=== PATIENT | male | born 1955 | race Caucasian/White ===

== ENCOUNTER → 2021-04-15 09:16 | Outpatient (BNVA) | payer MEDICARE, SELFPAY | PROVIDERS: PCP Registered Nurse; Visit Provider Registered Nurse | DX: E11.9 Type 2 diabetes mellitus without complications (principal); E78.5 Hyperlipidemia, unspecified; I10 Essential (primary) hypertension; M21.621 Bunionette of right foot; M21.622 Bunionette of left foot; G62.9 Polyneuropathy, unspecified | CPT/HCPCS: 80053; 80061; 83036; 85025 ==

== ENCOUNTER 2021-06-08 12:32 | Outpatient (CLI) | payer MEDICARE, SELFPAY ==
--- NOTE | 2021-06-08 12:47 | XR_ITS ---
WS: [id number] HIP WITH PELVIS LEFT TECHNIQUE: 3 views of the left hip with pelvis CLINICAL INFORMATION: M25.559 - Pain in unspecified hip COMPARISON: None. FINDINGS: Normal anatomic alignment. No acute fractures. Moderate degenerative narrowing left hip. Normal left pubic rami. Vascular calcification. No acute fractures. XR/XR hip LT 2-3V wo/w pel* [id number] IMPRESSION: Moderate degenerative arthritis left hip. No acute fractures. Tonnis classification: grade 2: small cysts in femoral head/acetabulum or moder ate joint space narrowing or moderate loss of head sphericity
== END 2021-06-08 12:33 | disposition home or self-care (01) ==
PROVIDERS: PCP Registered Nurse; Visit Provider Registered Nurse
DX: M16.12 Unilateral primary osteoarthritis, left hip (principal)
CPT/HCPCS: 73502

== ENCOUNTER → 2021-06-15 14:45 | Outpatient (BNVA) | payer MEDICARE, SELFPAY | PROVIDERS: PCP Registered Nurse; Referring Provider Registered Nurse; Visit Provider Podiatrist Foot & Ankle Surgery | DX: M21.621 Bunionette of right foot (principal); M21.622 Bunionette of left foot; M77.41 Metatarsalgia, right foot; M77.42 Metatarsalgia, left foot; M20.41 Other hammer toe(s) (acquired), right foot; M20.42 Other hammer toe(s) (acquired), left foot; E11.42 Type 2 diabetes mellitus with diabetic polyneuropathy | CPT/HCPCS: 73630 ==

== ENCOUNTER → 2021-07-16 14:14 | Outpatient (BNVA) | payer MEDICARE, SELFPAY | PROVIDERS: PCP Registered Nurse; Referring Provider Registered Nurse; Visit Provider Orthopaedic Surgery | DX: M54.5 Low back pain (principal) | CPT/HCPCS: 72110 ==

== ENCOUNTER → 2021-07-17 10:24 | Outpatient (BNVA) | payer MEDICARE, SELFPAY | PROVIDERS: PCP Registered Nurse; Referring Provider Orthopaedic Surgery; Visit Provider Anesthesiology Pain Medicine | DX: M25.552 Pain in left hip (principal); M47.816 Spondylosis without myelopathy or radiculopathy, lumbar region | CPT/HCPCS: 99204 ==

== ENCOUNTER → 2021-08-03 14:00 | Outpatient (BNVA) | payer MEDICARE, SELFPAY | PROVIDERS: PCP Registered Nurse; Visit Provider Anesthesiology Pain Medicine | DX: Z01.812 Encounter for preprocedural laboratory examination (principal); E11.65 Type 2 diabetes mellitus with hyperglycemia; G89.29 Other chronic pain; M25.552 Pain in left hip; Z79.4 Long term (current) use of insulin | CPT/HCPCS: 20610; 36416; 77002; 82962; J1030; J3490 ==

== ENCOUNTER → 2021-08-13 09:42 | Outpatient (BNVA) | payer MEDICARE, SELFPAY | PROVIDERS: PCP Registered Nurse; Visit Provider Anesthesiology Pain Medicine | DX: M47.816 Spondylosis without myelopathy or radiculopathy, lumbar region (principal); M25.552 Pain in left hip | CPT/HCPCS: 99213 ==

== ENCOUNTER 2021-09-08 16:18 | Outpatient (RCR) | payer MEDICARE, SELFPAY | END 2021-09-20 23:59 | disposition home or self-care (01) | LOC: SPT 16:18 | PROVIDERS: PCP Registered Nurse; Referring Provider Anesthesiology Pain Medicine; Visit Provider Anesthesiology Pain Medicine | DX: M25.559 Pain in unspecified hip (principal) | CPT/HCPCS: 97110; 97162 ==

== ENCOUNTER → 2022-01-11 09:43 | Outpatient (BNVA) | payer MEDICARE, SELFPAY | PROVIDERS: PCP Registered Nurse; Visit Provider Registered Nurse | DX: E11.65 Type 2 diabetes mellitus with hyperglycemia (principal); Z79.4 Long term (current) use of insulin; E78.5 Hyperlipidemia, unspecified; I10 Essential (primary) hypertension; L20.9 Atopic dermatitis, unspecified | CPT/HCPCS: 80053; 80061; 83036; 83721 ==

== ENCOUNTER 2022-02-12 07:03 | Outpatient (CLI) | payer MEDICARE, SELFPAY ==
[2022-02-12 07:56] VITALS: BMI 29.2
--- NOTE | 2022-02-12 08:03 | ECG_ITS ---
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 Interpretive Statements NAME OF STUDY: LEXISCAN SESTAMIBI STRESS TEST INDICATION: Chest Pain, PROCEDURE: At the baseline, the EKG revealed sinus bradycardia with the PVCs. Possible old inferior wall myocardial infarction. Heart rate of 57 beats per minute. The baseline blood pressure was 133/59 mm Hg with a heart rate of 57 beats/min. Lexiscan was infused over a period of 20 seconds. A total of 0.4 milligrams of Lexiscan was infused. The stress phase was continued for a total of 5 minutes. Heart rate at the end of the stress phase was 68 bpm with a blood pressure 170/70. The EKG at the peak infusion revealed no significant changes Sestamibi was injected 20 seconds after the Lexiscan infusion. Blood pressure at the end of the recovery phase was 162/88 with a heart rate of 86 per minute. CONCLUSION: 1. No significant EKG changes with a Lexiscan stress 2. No LexiScan induced chest pain or cardiac arrhythmia 3. Normal blood pressure and heart rate response 4. Sestamibi/sestamibi perfusion scan pending; see separate report. Electronically Signed On 02-12-2022 13:38:14 CDT by Tiara Kat M.D. [id number]
--- NOTE | 2022-02-12 08:03 | NMCV_ITS ---
NM jane perf SPECT r/s* [id number] Dimitri Santillan Age: 67 Gender: M : 1955 Exam Date: 02/12/2022 08:56 Ordering Phys: Tiara Kat MD ([email or web address]) Technologist: MARIA ESTHER No Exam Location: [facility] Indications: OCCLUSION AND STENOSIS OF UNSPECIFED CAROTID ARTERY STRESS TEST Please see separate stress test report in [facility] for full findings IMAGE PROTOCOL Rest/Stress 1 Lexiscan Day Radiopharmaceutical Dose (mCi) Administration Site Administered by Rest: Tc-99m 10.9 IV MARIA ESTHER Johnson Sestamibi Stress:Tc-99m 32.4 IV MARIA ESTHER Johnson Sestamibi Rest: 12-Feb-2022 60 Discovery 630 Stress: 12-Feb-2022 30 Discovery 630 0.4mg Lexiscan. Images obtained in supine and prone position. SPECT RESULTS Technical Quality: Excellent Raw Data Analysis: Normal Image Corrections: No attenuation or motion correction applied Summed Stress Score: 0 Summed Rest Score: 0 Summed Difference Score: 0 PERFUSION FINDINGS Uniform myocardial tracer uptake with no significant perfusion abnormalities FUNCTIONAL RESULTS (calculated via Gated SPECT) Stress Image LV EF (%): 61 Stress EDV (mL):115 TID: 1.18 Stress ESV (mL):45 FUNCTIONAL FINDINGS: Segmental wall motion analysis revealing no gross wall motion abnormalities IMPRESSIONS 1. Myocardial perfusion imaging revealing uniform myocardial tracer uptake with no perfusion defects 2. Normal LV ejection fraction of 61%. 3. LV wall motion analysis revealing no gross wall motion abnormalities 4. Normal LV volume No significant coronary ischemia, based on the above findings Dr Tiara Kat MD [facility] (Electronically Signed) Final Date: 12 February 2022 15:56 S
--- NOTE | 2022-02-12 08:30 | USCV_ITS ---
Dimitri Santillan Age: 67 Gender: M : 1955 Exam Date: 02/12/2022 07:13 Ordering Phys: Tiara Kat MD ([email or web address]) Technologist: Francy Carreon [place] [facility] [place]: RT CEA STENT IN PLACE. Risk Factors: Unknown Previous Vascular Surgery: R CEA Right Brachial BP: / Left Brachial BP: / Right Left Velocity (cm/s) Spectral Plaque Velocity (cm/s) Spectral Plaque Syst/Diast Broadening Syst/Diast Broadening 60.50/ 13.50 Prox CCA 59.90 / 13.00 31.90/ 14.00 Mid CCA 53.10 / 15.40 39.60/ 10.80 Distal CCA 59.20 / 14.20 50.85/ 17.40 Prox ICA 36.50 / 10.60 41.50/ 14.60 Mid ICA 42.70 / 18.20 39.70/ 16.40 Distal ICA 40.70 / 7.10 83.10 ECA 66.00 1.39 ICA/CCA 0.80 Antegrade Vertebral Antegrade 36.40/ 12.30 cm/s 33.40/ 11.70 cm/s Tri Subclavian Tri 53.70 79.70 FINDINGS A stent in the proximal right internal carotid artery appeared to be patent with a normal flow velocity Minimal plaques of the left bifurcation and proximal ICA Normal Doppler flow velocities Antegrade flow in the vertebral arteries bilaterally Normal Doppler flow velocities in the external carotid and subclavian arteries bilaterally CONCLUSIONS 1. Patent stented segment of the right proximal ICA with no evidence of stenosis 2. Minimal plaques at the left bifurcation and proximal internal carotid artery. 3. No evidence of any significant stenosis in the external carotid, subclavian and vertebral arteries bilaterally Dr Tiara Kat MD [facility] (Electronically Signed) Final Date: 12 February 2022 16:02 S
[2022-02-12] MEDS: regadenoson 0.4 Mg/5 ml Syringe IVP (09:41)
[2022-02-12 09:51] VITALS: BP 162/68; PULSE 66
== END 2022-02-12 07:04 | disposition home or self-care (01) ==
LOC: RAD 07:04 → CDL 07:16
PROVIDERS: PCP Registered Nurse; Visit Provider Internal Medicine Cardiovascular Disease
DX: I65.23 Occlusion and stenosis of bilateral carotid arteries (principal); I77.9 Disorder of arteries and arterioles, unspecified; R09.89 Other specified symptoms and signs involving the circulatory and respiratory systems; R07.9 Chest pain, unspecified
CPT/HCPCS: 78452; 93017; 93880; A9500; J2785

== ENCOUNTER 2022-04-13 10:31 | Outpatient (CLI) | payer MEDICARE, SELFPAY ==
--- NOTE | 2022-04-13 11:00 | USCV_ITS ---
Dimitri Santillan Age: 67 Gender: M : 1955 Exam Date: 04/13/2022 10:49 Ordering Phys: Tiara Kat MD ([email or web address]) Technologist: FRANK Exam Location: [facility] [place] Indication: pad hx of rt sfa stent Risk Factors: Previous Vascular Surgery: RIGHT LEFT BP: 130.0 / 80.00 BP: 130.0/ 85.00 0 0 Waveform Velocity (cm/s) Velocity (cm/s) Waveform 99.0 Iliac Prox 144.3 97.1 Iliac Mid 125.5 108.6 Iliac Distal 127.0 COURIER 111.3 50.0 POP 84.7 16.0 MOTHERS HELPER 18.3 16.0 DPA 20.1 0.4 LUIGI 0.3 FINDINGS The right side, no Doppler flow signals are noted in the common femoral or femoral artery. Sluggish flow is noted in the popliteal, posterior tibial and dorsalis pedis artery. On the left side no Doppler flow signals are noted in the femoral artery. Doppler flow signals were noted in the popliteal and infrapopliteal vessels. Resting LUIGI 0.4 on the right and 0.3 on the left side CONCLUSIONS 1. Abnormal resting ABIs bilaterally, suggesting severe peripheral arterial disease. 2. On the right, the common femoral and the anterior superficial femoral arteries appear totally occluded. Popliteal and infrapopliteal vessels appear patent. 3. On the left, the iliac and the femoral arteries were found to be patent. The superficial femoral artery was found to have no blood flow. Popliteal and infrapopliteal vessels were found to be patent. No similar previous studies are available for comparison Dr Tiara Kat MD [facility] (Electronically Signed) Final Date: 13 Apr 2022 18:43 S
== END 2022-04-13 10:32 | disposition home or self-care (01) ==
PROVIDERS: PCP Registered Nurse; Visit Provider Internal Medicine Cardiovascular Disease
DX: I65.29 Occlusion and stenosis of unspecified carotid artery (principal); I77.9 Disorder of arteries and arterioles, unspecified; Z98.62 Peripheral vascular angioplasty status
CPT/HCPCS: 93925

== ENCOUNTER 2022-05-12 10:14 | Outpatient (CLI) | payer MEDICARE, SELFPAY ==
--- NOTE | 2022-05-12 10:25 | CT_ITS ---
WS: [id number] CTA ABDOMINAL AORTA WITH RUNOFF TECHNIQUE: Contrast enhanced CTA of the abdominal aorta with bilateral lower extremity runoff. Multip lanar reformatted images were obtained. MIP reformats were also reviewed. CLINICAL INFORMATION: Femoral artery occlusion COMPARISON: None. DLP: 955.[address] scans at [facility] use at least one of these dose optimization techniques: automated e xposure control; mA and/or kV adjustment per patient size (includes targeted exams where dose is matc hed to clinical indication); or iterative reconstruction. FINDINGS: Normal caliber abdominal aorta. Celiac and SMA are patent. Moderate aortic atheromatous dis ease. KWASI is patent. RIGHT: RIGHT common iliac artery is patent. RIGHT external iliac and internal iliac arteries are valadez nt with atheromatous disease. Moderate short segment narrowing of the distal external iliac which rem ains patent. Proximal Common femoral artery is patent. The femoropopliteal bypass graft is occluded. No flow in the bypass graft. Deep femoral artery appears patent. No flow in the popliteal artery. Tin y three-vessel runoff to the ankle. Calf arteries reconstitute just below the just knee via collatera l flow. No significant in-line flow LEFT: LEFT common iliac artery is patent. Densely calcified internal iliac artery. External iliac art misha is patent. Common femoral artery is patent. Superficial femoral artery is occluded at the origin. Deep femoral artery is patent. Popliteal artery is occluded. Dominant anterior tibial and posterior tibial runoff. Diminutive tiny peroneal artery. Diffuse fatty infiltration liver. Normal portal vein and splenic vein. Fatty atrophy of the pancreas . Normal spleen. Small esophageal hiatal hernia. Slight atelectasis in the lung bases. Cholelithiasis . Adrenal glands are normal. Normal renal parenchymal enhancement. No hydronephrosis. Fat-containing LEFT inguinal hernia. Enlarged heterogeneous nodular prostate measuring 5.6 cm. Recommend correlation PSA. Indentation on the bladder with bladder outlet obstruction. Sigmoid diverticulosis. Normal appe ndix in the RIGHT lower quadrant. No periaortic lymphadenopathy. Tiny fat-containing umbilical hernia . CT/CT angio abd aorta runof [id number] IMPRESSION: 1. RIGHT femoral popliteal bypass graft is occluded. No flow in the superficia l femoral artery and popliteal artery. Three-vessel calf runoff to the ankle wi th somewhat diminutive but patent calf arteries 2. LEFT superficial femoral artery is occluded at the origin. Popliteal arter y is occluded.Dominant anterior tibial and posterior tibial runoff. Diminutive tiny peroneal artery. 3. Normal caliber abdominal aorta with moderate atheromatous disease. 4. Celiac and SMA are patent. KWASI is patent. 5. Enlarged heterogeneously enhancing nodular prostate with evidence of bladde r outlet obstruction. Recommend correlation PSA. 6. Cholelithiasis. 7. Additional nonvascular findings as described above.
[2022-05-12 10:46] LABS: Blood Urea Nitrogen 17 mg/dL (8-23); Glomerular Filtration Rate 50.4 mL/min (90-130)
[2022-05-12] MEDS: iodixanol 320 mg/mL 100mL Btl IV (11:09)
== END 2022-05-12 10:15 | disposition home or self-care (01) ==
PROVIDERS: PCP Registered Nurse; Visit Provider Internal Medicine Cardiovascular Disease
DX: I70.209 Unspecified atherosclerosis of native arteries of extremities, unspecified extremity (principal); I77.9 Disorder of arteries and arterioles, unspecified; N28.9 Disorder of kidney and ureter, unspecified; T82.898A Other specified complication of vascular prosthetic devices, implants and grafts, initial encounter; N40.1 Benign prostatic hyperplasia with lower urinary tract symptoms; N13.8 Other obstructive and reflux uropathy; K80.20 Calculus of gallbladder without cholecystitis without obstruction
CPT/HCPCS: 75635; 82565; 84520

== ENCOUNTER → 2022-05-18 13:30 | Outpatient (BNVA) | payer MEDICARE, SELFPAY | PROVIDERS: PCP Registered Nurse; Visit Provider Internal Medicine Cardiovascular Disease | DX: I77.9 Disorder of arteries and arterioles, unspecified (principal); E11.65 Type 2 diabetes mellitus with hyperglycemia; Z79.4 Long term (current) use of insulin; I10 Essential (primary) hypertension; I65.29 Occlusion and stenosis of unspecified carotid artery | CPT/HCPCS: 99214 ==

== ENCOUNTER → 2022-05-28 08:20 | Outpatient (BNVA) | payer MEDICARE, SELFPAY | PROVIDERS: PCP Registered Nurse; Visit Provider Internal Medicine Cardiovascular Disease | DX: I77.9 Disorder of arteries and arterioles, unspecified (principal) | CPT/HCPCS: 80048; 85025 ==

== ENCOUNTER 2022-06-09 07:13 | Outpatient (CLI) | payer MEDICARE, SELFPAY ==
[2022-06-09] VITALS (34 sets, daily range): BP systolic 131–185; BP diastolic 59–92; PULSE 53–70; RESP 11–25; TEMP 36.2–37.1; O2SAT 91–97; BMI 27.9; BMI 27.8
--- NOTE | 2022-06-09 07:30 | XACV_ITS ---
Wt: 83 kg BSA: 2.02 m2 Any Known Allergies: No known allergies Gender: Male : 1955 Exam Type: Invasive Peripheral Vascular - Dual [place] Procedure(s): Procedure Description: Peripheral Cath Diagnostic Procedure Procedure Description: Abdominal aortic angiography Procedure Description: Iliac arterial aortic angiography Procedure Description: Lower extremities' angiography Procedure Description: Peripheral vascular Intervention Procedure Description: PV Balloon Procedure Description: PV Stent Exam Priority: Routine [facility]; Abdominal Diagnostic Findings A 5 Angolan arterial sheath was introduced in the left femoral artery, using a micropuncture needle system. Abdominal aorta and iliac artery were visualized by digital subtraction angiogram, after placing a short pigtail catheter at the level of the renal arteries, in the AP view. The abdominal aorta was found to have mild diffuse plaque. The right renal artery was well visualized and was found to have no significant stenotic lesions. The proximal segment of the left renal artery was visualized and was found to have no significant stenosis. The distal segment was not visualized well. Both the common iliac arteries were found to be ectatic with a small aneurysmal dilatations. Both internal iliac arteries were found to have mild diffuse disease. On the right side, at the takeoff of the internal iliac artery, there was a napkin ring type of lesion of around 50-60%. The external iliac artery was found to have a segmental narrowing of around 60-70%. On the left side, the iliac artery was found to have mild to moderate diffuse plaques.. Lower Extremity Diagnostic Findings The right iliac artery was selectively engaged using a NASEEM catheter. An iliac angiogram with runoff was performed in the AP view. The femoral artery appeared to be flush occluded after the takeoff of the profunda femoral artery. The profundofemoral artery was found to have moderate diffuse disease proximally. The right Morelos popliteal bypass graft was found to be totally occluded. The popliteal artery was found to be constituted thro extensive collaterals, from the profundofemoral artery. Digital subtraction angiogram was performed at the level of the distal femoral and popliteal artery. The popliteal artery was found to be trifurcating to anterior tibial, posterior tibial and peroneal arteries. The proximal segment of the tibial artery was found to have moderate diffuse disease. No other significant stenotic lesions were noted in the proximal to mid segment of these vessels. On the left side, iliac angiogram with runoff was performed by injecting into the femoral arterial sheath. The external iliac artery was found to have mild to moderate diffuse disease. The mid iliac artery also was found to have moderate diffuse disease proximally. Right after the profunda femoral artery, the femoral artery appears to be completely occluded. The popliteal artery also appears to be totally occluded. Infrapopliteal vessels are found to be reconstituted through collaterals. Lower Extremity Interventional Findings Procedure detail: We switched 5 Angolan sheath to long 6 Angolan sheath. Balloon angioplasty of external iliac artery was performed with 7.0 x 40 mm balloon. This was followed by placement of 7.0 x 29 mm Omnilink stent. At this time final angiogram was performed that showed excellent stent expansion and no significant residual stenosis in the external iliac artery. Patient left the Care Team Coordinator Scheduler in a stable condition with. Right External Iliac Artery: 70% stenosis treated with AB ARMADA 35 OTW [id number] and AB OMNILINK STENT 7.0X29MM. Conclusions This 63-year-old white male with a history of peripheral artery disease, status post multiple peripheral interventions and a right Morelos popliteal bypass grafting, presented with increasing external claudication. He had an LUIGI of 0.3 on the right side and 0.4 on the left side. A CTA of the abdominal aorta with runoff was performed. The femoral artery on both sides were found to be completely occluded. The femoropopliteal bypass graft also was found to be completely occluded. Three-vessel runoff was noted in the infrapopliteal regions. Peripheral angiogram was performed mainly to evaluate for intervenable lesions. This patient's claudication was classified as Sheryl stage IIb. The angiogram was performed as mentioned above. The findings are as follows.. 1. Mild to moderate diffuse plaques in the abdominal aorta. No significant stenosis in the proximal renal arteries or in the inferior mesenteric artery. There is a 60-70% stenosis in the external iliac artery on the right side. Total occlusion of the femoral artery at the level of the profundofemoral takeoff bilaterally. On the right side, the popliteal artery was found to be reconstituted through extensive collaterals. On the left the infrapopliteal vessels were found to be reconstituted through extensive collaterals. The Fem-popliteal bypass thatfound to be totally occluded on the right side. Based on the angiographic findings, it was thought to be appropriate to consider intervention of the external iliac artery lesion on the right side to improve the inflow since the patient was complaining more pain on the right side. I reviewed and discussed the angiogram findings with the Dr. Crockett. Dr. Crockett concurred with this plan. At this point, Dr. Crockett took over further management of this patient. Status post successful revascularization of right external iliac artery with balloon angioplasty and stent placement. Right External Iliac Artery was treated with Balloon and Stent. Recommendations Aspirin and Plavix for atleast 3-6 months. Statin therapy. Outpatient cardiology follow up in 4 weeks. Hemodynamic Data Phase:Rest AO : 196.0 / 76.0 ( 119.0 ) @ 10:16:00 AM 192.0 / 191.0 ( 116.0 ) @ 11:10:00 AM Access Site Site: Left Femoral artery Sheath Size: 5 Fr Hemost... Method: Suture Hemost... Success: Successful Procedure Details Findings Pre-Procedure Time Out. Identified patient by full name and date of as verbalized by the patient/guarantor. Does the consent match the physician's order: Yes. Accurate & Complete Informed Consent: Yes. Inpatient/Outpatient History & Physical on Chart: Yes. If H&P is completed, is and addenduem needed: No; If yes, is the addendum complete: N/A. Visualize and Verify Site with Patient/Guarantor: N/A. Relevant Radiology Images available: N/A. Pre-op teaching completed and patient verbalized understanding. The risks, benefits, and alternatives of sedation and/or procedure were discussed by physician. The patient agrees to continue. Procedure started. Correct patient, site and procedure confirmed by cath team. PERRLA. Strong, equal hand technician semiconductor development bilaterally. Lungs clear x 5 lobes. IV Site on Arrival: 20 gauge in the right anticubital. IV Fluids: 0.9% NaCl at KVO. 0 mL infused prior to confectionery laboratory manager. Pre Procedural Pulses: bilateral dorsalis pedis was Doppled. Pre Procedural Pulses: bilateral posterior tibial was Doppled. Pre Procedural Pulses: bilateral radial was 3+. Oxygen started at 2liters/min via nasal canula. bilateral groins was prepped with chloroprep then draped in the usual sterile fashion. Baseline sample Acquired. HR: 89 BPM. Equipment: Peripheral. Cardiac Cath Pack. ACIST Manifold Kit Model BT 2000. Heparinized Saline (2 units/mL), 1000 mL bag. Physician arrived. Physician scrubbed in. Immediate Pre-Procedure Time Out. Correct Patient: Yes; Correct Procedure: Yes; Correct Site: Yes; Correct Patient Position: Yes; Correct Supplies: Yes; Dried Flammable Prep: Yes; Blood Products Available: N/A;. Lidocaine 1% infiltrated to the left groin. Arterial access obtained with micropuncture set. Contrast injection through micro dilator. A CORDIS 5F UF catheter 65cm was advanced over the wire and used for Abdominal aortogram with runoff. Abdominal aortogram performed in AP @ 10 mL/sec for a total of 30 mL. Catheter repositioned to right iliac. Wire out. Glidewire inserted. Catheter out over glide wire. A JJ 5F RIM 65 cm Diagnostic Catheter was advanced over the wire and used for Lower extremity arteriography. Glidewire out. Right leg selected and arteriogram with runoff performed @ 10 mL/sec for a total of 30 mL. Right leg runoff below knee 10 m for total of [address] Crockett to come view images. Right common iliac selected and arteriogram performed. Side port of sheath attached to Normal Saline flush at KVO to maintain patency. Dr Crockett arrived. Right common iliac selected and arteriogram performed. Catheter out. Left leg runoff through the sheath. DSA image of left knee. Side port of sheath attached to Normal Saline flush at KVO to maintain patency. Dr Kat scrubbed out. Dr Kat updating family. Dr. Crockett scrubbed in to perform intervention. Sheath upsized to a 6 Fr. Short 6 fr sheath exchanged for long 45 cm 6 fr flexor sheath. RIM catheter inserted over glidewire. Wire seated to prox right sfa. Catheter out over wire. Inflation number : 1 A AB ARMADA 35 OTW [id number] was prepped and advanced across the External Iliac, Right , then inflated to 6 TOMAS for 1:30 seconds. Inflation number: 2 The AB ARMADA 35 OTW [id number] was reinflated across the External Iliac, Right, to 6 TOMAS for 1:00 seconds. Balloon out. DSA of right iliac 10 ml for total of 20 ml. Inflation Number : 3 A [employer] OMNILINK STENT 7.0X29MM -Lot Number# [id number] exp date 02/18/2025 was prepped and advanced across the External Iliac, Right. The stent was deployed at 11 TOMAS for 1:18 seconds. DSA of right iliac 10 ml for total of 10 ml. Long 45 cm 6 fr flexor sheath exchanged for short [address] Crockett scrubbed out. A Suture was successful obtaining hemostatsis at the Left Femoral artery insertion site. Sheath(s) sutured into position with 2-0 silk and sterile 4x4's and Op-site applied over the site. No oozing or signs and symptoms of hematoma noted. Arterial sheath flushed and connected to tranducer and pressure bag with heparinized saline. Post Procedure: Pulses reassessed and unchanged. PERRLA. Strong, equal hand technician semiconductor development bilaterally. No VTE prophylaxis required. Medication's Wasted: Heparin = 4000 units. Total IV fluids: 113 mL. Contrast type used: Visipaque 320 mgI/mL, 500 mL bottle. Post-op diagnosis: severe disease of right external iliac. Complications: none. Estimated blood loss: 5mL-10mL. Responsiveness - Normal response to verbal stimuli; alert and oriented, PERRLA. Airway - Unaffected, no intervention required; spontaneous ventilation. Circulation: W/N/L, pulses unchanged. Nausea/Vomiting: No. Procedure completed. Patient transferred by bed to 1st floor. Vital chart was stopped. Procedure Medications Start: 9:06 AM Stop: 9:06 AM Medication: Versed Amount: 1 mg Route: I.V. Start: 9:06 AM Stop: 9:06 AM Medication: Fentanyl Amount: 50 mcg Route: I.V. Start: 9:25 AM Stop: 9:25 AM Medication: Heparin Amount: 1500 units Route: I.V. Start: 9:58 AM Stop: 9:58 AM Medication: Versed Amount: 1 mg Route: I.V. Start: 10:11 AM Stop: 10:11 AM Medication: Heparin Amount: 3000 units Route: I.V. Start: 10:15 AM Stop: 10:15 AM Medication: Hydralazine Amount: 10 mg Route: I.V. Start: 10:22 AM Stop: 10:22 AM Medication: Hydralazine Amount: 10 mg Route: I.V. Start: 10:25 AM Stop: 10:25 AM Medication: Versed Amount: 1 mg Route: I.V. Start: 10:27 AM Stop: 10:27 AM Medication: Heparin Amount: 1000 units Route: I.V. I, the attending physician, have reviewed and verified all procedure medications. Yes, all medications given per verbal order History/Risk Factors Hypertension: Yes Dyslipidemia: No Peripheral Arterial Disease (PAD): No Obesity: No Renal Disease: No Prior Interventions PCI: No CABG: No Valve Surgery: No Report Signatures Interventional Workflow Finalized by Roscoe Crockett MD on 06/21/2022 12:00 PM Diagnostic Workflow Finalized by Dr Tiara Kat MD [facility] on 06/10/2022 08:48 PM
[2022-06-09] MEDS: diphenhydrAMINE 50 mg Capsule PO (07:43)
--- NOTE | 2022-06-09 08:39 | W.PM.OPSUD ---
Surgery/Procedure H&P Update DATE OF PROCEDURE: June 09, 2022 DATE H&P PERFORMED: 05/18/22 H&P UPDATE INFORMATION: I have reviewed H&P completed within last 30 days, I have examined patient prior to procedure and No changes to prior documentation PREOP DIAGNOSIS: PAD PRIMARY INDICATION FOR PROCEDURE: leg pain, abnormal LUIGI PLANNED PROCEDURE: Operation Date: 06/09/22 08:30 Proposed Procedures p Peripheral Diagnostic(Bilateral) - Tiara Kat MD possible peripheral artery intervention PATIENT REASSESSED PRIOR TO SEDATION, WITH NO CHANGE NOTED: Yes PHYSICAL EXAM: alert, oriented x 3, clear to auscultation bilaterally and regular rate & rhythm AIRWAY EVAL/ANESTHESIA PLAN: normal airway, see other exam findings, Monitored Anesthesia, Local Anesthesia, Risks, benefits & alternatives of sedation and/or procedure discussed and Patient agrees to continue as planned
--- NOTE | 2022-06-09 11:14 | PC.NURSE ---
received from cardiac lab intern at 1050.report received.pt is drowsy but easily awakened.alert and orient x 3.denies pain.sr on monitor.left femoral arterial sheath intact to pressurized system.drsg to site is dry and intact.no hematoma noted.left leg is warm to touch and with brisk capillary refill.dopplerable pt and dp pulses noted .pt instructed in activity restrictions s/p femoral artery procedure..and instructed to notify staff for any bleeding,pain,sob,cp,numbness..or for any concerns at all.pt verb understanding of instructions.
[2022-06-09 14:46] LABS: Partial Thromboplastin Time 30.8 SECONDS (23.9-36.7)
--- NOTE | 2022-06-09 15:44 | USCV_ITS ---
Dimitri Santillan Age: 67 Gender: M : 1955 Exam Date: 06/09/2022 16:17 Ordering Phys: Roscoe Crockett M.D ([email or web address]) Technologist: Raul Arroyo Exam Location: [facility] – [place] Indication: post sheath removale Findings no psuedoaneurysm normal iliac artery and vein flow flow present at the posterior tib artery Conclusions No pseudoaneurysm Normal iliac artery and vein Normal flow posterior tibial artery Elder Kennedy MD (Electronically Signed) Final Date: 10 June 2022 09:10 S
--- NOTE | 2022-06-09 16:08 | PC.NURSE ---
left femoral arterial sheath pulled at 1505.manual pressure held x 20 min.after pressure released, a small firm area of tissue palpated upper and medial to sheath site.pulsation noted.pressure resumed to artery and to firm area.dr javed was on unit and notified. he instructed to hold pressure for an additional 10 min and obtain arterial ultrasound.ultrasound performed and no pseudoaneurysm noted.site dressed with 2x2 gauze and secured with biocclusive.pt tolerated procedure well.instructed in activity restrictions s/p femoral artery sheath pull..and instructed to notify staff for any bleeding,pain,numbness...or for any concerns at all.pt verb understanding of instructions
[2022-06-09 16:35] LABS: Glucose Point of Care 191 mg/dL (70-110)
--- NOTE | 2022-06-09 18:36 | PC.NURSE ---
transferred to room 276-1 via bed at this time.left groin drsg dry and intact.site is soft to touch.
--- NOTE | 2022-06-09 19:00 | PC.NURSE ---
Left groin dressing is dry and intact, site is soft, patient denies tenderness. Bilateral pedal pulses present.
[2022-06-09] MEDS: atorvastatin 40 mg Tablet 20 MG PO (21:09)
[2022-06-09] MEDS: amlodipine 10 mg Tablet PO (21:09)
--- NOTE | 2022-06-09 23:26 | PC.NURSE ---
Patient's bedrest is completed, patient ambulated in the hallway. Left groin dressing is still dry and intact, no hematoma present, site is soft, and pedal pulse present in the left foot.
[2022-06-10] VITALS: BP 111/69; PULSE 79; RESP 18; TEMP 36.5; O2SAT 91
[2022-06-10 04:00] VITALS: BP 138/65; PULSE 56; RESP 18; TEMP 36.4; O2SAT 94
[2022-06-10 05:17] VITALS: PULSE 60
--- NOTE | 2022-06-10 05:46 | PC.NURSE ---
i reported low pulse 56 to nurse
[2022-06-10 08:00] VITALS: BP 138/70; PULSE 56; RESP 17; O2SAT 94
[2022-06-10 08:13] VITALS: BP 138/70
[2022-06-10] MEDS: losartan 50 mg Tablet 100 MG PO (08:13)
--- NOTE | 2022-06-10 09:50 | P.PN_ITS ---
Subjective Subjective: Patient was admitted to hospital following peripheral angiogram and intervention of the right iliac artery. Since the peripheral intervention, the patient has been doing okay with no unusual leg pain Medications: Medication Review Details: Current Medications Amlodipine Besylate (Amlodipine 10 Mg Tablet) 10 mg PO BEDTIME [facility] Last Admin: 06/09/22 21:09 Dose: 10 mg Documented by: Atorvastatin Calcium (Atorvastatin 40 Mg Tablet) 20 mg PO BEDTIME [facility] Last Admin: 06/09/22 21:09 Dose: 20 mg Documented by: Fluticasone Propionate (Fluticasone Nasal [place] 16gm Btl) 2 spray INTRANASAL DAILY PRN PRN Reason: seasonal allergies Losartan Potassium (Losartan 50 Mg Tablet) 100 mg PO DAILY [facility] Last Admin: 06/10/22 08:13 Dose: 100 mg Documented by: Metformin HCl (Metformin 500 Mg Tablet) 1,000 mg PO BIDWM [facility] Last Admin: 06/10/22 07:12 Dose: Not Given Documented by: Non-Formulary Medication (Glipizide) 5 mg PO BID [facility] Triamcinolone Acetonide (Triamcinolone 0.5% Cream 15 Gm) 1 applic TOPICAL DAILY PRN PRN Reason: AFFECTED AREA Vitals/I&O/Wt Last Vital Signs Temp 97.6 F 06/10/22 04:00 Pulse 56 L 06/10/22 08:00 Resp 17 06/10/22 08:00 BP 138/70 06/10/22 08:13 Pulse Ox 94 06/10/22 08:00 06/09/22 06/10/22 06/10/22 22:59 06:59 14:59 Intake Total 480 / 720 120 / 840 236 / 236 Output Total 275 / 275 Balance 205 / 445 120 / 565 236 / 236 Weight last 48 hrs Weight 183 lb 0.5 oz Weight 184 lb Physical Exam Narrative: GENERAL: The patient is alert and oriented times three. Not in any acute distress. HEENT: No significant pallor, icterus or lymphadenopathy.Oral cavity: There are no mucous membrane lesions. NECK: Trachea appears to be central. No masses noted. No JVD or thyromegaly a ppreciated. RESPIRATORY: Chest is symmetrical. No intercostals muscle retraction or any accessory muscle activation. There is no chest wall tenderness. Breath sounds are heard bilaterally. No rales or rhonchi heard. No evidence of any consolidation. BREASTS: Deferred. HEART: The heart sounds are normal. No S3 or S4. No significant murmurs. No pericardial rub ABDOMEN: No vessel pulsations or distention. No tenderness. No organomegaly appreciated. Bowel sounds are normally heard. : Deferred. RECTAL: Deferred. LYMPHATIC: No lymphadenopathy noted in the neck. EXTREMITIES: The left groin has no hematoma bleeding. Normal discoloration of the skin of the extremities. The peripheral pulses are very weak bilaterally but is warm. MUSCULOSKELETAL: No acute joint deformities or swelling SKIN: There are no significant rashes or ecchymosis NEUROPSYCHIATRIC: The patient is alert and oriented x3. Appears to be in a good mood. No tremors or rigidity noted. Data Other data: For the peripheral angiogram findings, please refer to the separate report A&P Assessment and plan (1) Peripheral arterial occlusive disease: Patient has chronic total occlusion of the femoral arteries bilaterally. Reconstitution of the vessels in the popliteal region. The femoral-popliteal bypass graft on the right side is occluded. Underwent stenting of the right external iliac artery yesterday. Currently seems to be stable and has significant improvement of the symptoms. Status: Acute (2) Diabetic peripheral neuropathy associated with type 2 diabetes mellitus: May continue on the current management. Patient will keep the follow-up appointments with the primary care provider. Status: Acute (3) Carotid artery stenosis: Currently stable. Will have follow-up evaluations as scheduled. Status: Acute Qualifiers: Laterality: unspecified laterality Qualified Code(s): I65.29 - Occlusion and stenosis of unspecified carotid artery (4) Hypertension: Since the blood pressure remained stable, may continue on the current medications. Status: Acute Qualifiers: Hypertension type: essential hypertension Qualified Code(s): I10 - Essential (primary) hypertension Plan Patient has been ambulating on telemetry without any specific symptoms. At this point, since that he is remained stable, may be discharged home today. He will be seen in the clinic next week by the nurse practitioner. I may see him in the office as scheduled. Attestations Medical Necessity Statement*: Discharge home today Coding Level of Care Code Acute Grain Scooper for Joey Fwd History Detailed Exam Detailed Medical Decision Making Moderate Complexity Diagnoses Peripheral arterial occlusive disease I77.9 Diabetic peripheral neuropathy associated with type 2 diabetes mellitus E11.42 Carotid artery stenosis I65.29 Laterality: unspecified laterality Hypertension I10 Hypertension type: essential hypertension
--- NOTE | 2022-06-10 09:56 | PC.CHAP ---
Pastoral Care Encounter/Spiritual Assessment Type of Contact [] Declined maintenance engineer visit [] Patient/Family/Request visit [] Outpatient visit [] Follow-up visit [] Physician referral [] Code/Alert [x] Routine visit [] Staff referral [] Actively dying [] Patient sleeping [] Family support [] [] Out of room [] Palliative care [] [x] Receiving care in room [] Pre-surgical visit [] Trauma [] Long length of stay [] ICU visit [] Other: Relational/Emotional Strength [x] Patient feels connected with others/family/visitors/staff [] Distress [] Loneliness/isolation [] Abandonment Spirituality of Patient [x] Person of Juany [] Attends Scientologist of their Juany [x] Believes in Prayer [] Reads Bible or Tenriism materials [] There are Spiritual issues to be addressed Garment Cutter Interventions [x] Prayer [x] Active listening [x] Non-anxious presence [x] Spiritual/emotional support [] Crisis/trauma care [x] Spiritual counseling [] Bereavement support [] Provided bereavement packet [] Provided Bible/devotional materials [] Provided toy/stuffed animal, coloring book to patient or family member [] Provided Communion [] Anointing/Deputy [] Salvation [x] Completed spiritual assessment [] Other: Impact on Illness or Injury [] Angry [] Fearful [] Anxious [] Often cries [] Exhaustion [] Unable to work [] Unable to attend religion [] Unable to walk/stand [] Unable to read [] Unable to drive [] Unable to eat/drink [] Unable to sleep [] Unable to be with family [] Patient intubated [] Other: Summary feeling better gone through tests waiting on doctors report and when he can go home Time spent with patient 10 mins
[2022-06-10] MEDS: clopidogrel 300 mg Tablet PO (10:36)
[2022-06-10 11:30] VITALS: BP 138/70
--- NOTE | 2022-06-10 11:31 | PC.NURSE ---
Discharge Note Patient discharged to home via ambulation accompanied by spouse. Discharge instructions reviewed with patient and/or leasing representative. Mobile pharmacy medications and/or prescriptions provided. Belongings/home medications returned.
== END 2022-06-10 11:32 | disposition home or self-care (01) ==
LOC: CCL 07:19 → CSU 12:35 → MEDSURG 06-10 03:32 → CSU 06-11 06:43 → CCL 06-11 06:46
PROVIDERS: Internal Medicine; PCP Registered Nurse; Visit Provider Internal Medicine Cardiovascular Disease
DX: I70.0 Atherosclerosis of aorta (principal); I65.23 Occlusion and stenosis of bilateral carotid arteries; E11.42 Type 2 diabetes mellitus with diabetic polyneuropathy; I10 Essential (primary) hypertension
CPT/HCPCS: 36415; 36416; 37221; 75625; 75716; 82962; 85730; 93926; 96360; 99152; 99153; C1725; C1769; C1876; C1887; C1894; G0378; J0360; J1644; J2250; J3010; J7030; Q0163; Q9967

== ENCOUNTER → 2022-07-08 10:42 | Outpatient (BNVA) | payer MEDICARE, SELFPAY | PROVIDERS: PCP Registered Nurse; Visit Provider Surgery | DX: M67.40 Ganglion, unspecified site (principal) | CPT/HCPCS: 99203 ==

== ENCOUNTER → 2022-07-20 10:21 | Outpatient (BNVA) | payer MEDICARE, SELFPAY | PROVIDERS: PCP Registered Nurse; Visit Provider Orthopaedic Surgery | DX: R22.32 Localized swelling, mass and lump, left upper limb (principal) | CPT/HCPCS: 99203 ==

== ENCOUNTER → 2022-07-23 07:48 | Outpatient (BNVA) | payer MEDICARE, SELFPAY | PROVIDERS: PCP Registered Nurse; Visit Provider Orthopaedic Surgery | DX: M25.521 Pain in right elbow (principal); R22.31 Localized swelling, mass and lump, right upper limb | CPT/HCPCS: 24075 ==

== ENCOUNTER → 2022-07-23 11:40 | Outpatient (BNVA) | payer MEDICARE, SELFPAY | PROVIDERS: PCP Registered Nurse; Visit Provider Orthopaedic Surgery | DX: M25.521 Pain in right elbow (principal) | CPT/HCPCS: 88307 ==

== ENCOUNTER → 2022-08-18 13:27 | Outpatient (BNVA) | payer MEDICARE, SELFPAY | PROVIDERS: PCP Registered Nurse; Visit Provider Internal Medicine Cardiovascular Disease | DX: I77.9 Disorder of arteries and arterioles, unspecified (principal); I65.29 Occlusion and stenosis of unspecified carotid artery; E11.65 Type 2 diabetes mellitus with hyperglycemia; Z79.4 Long term (current) use of insulin; I10 Essential (primary) hypertension; E78.5 Hyperlipidemia, unspecified; Z87.891 Personal history of nicotine dependence | CPT/HCPCS: 99214 ==

== ENCOUNTER → 2022-11-08 10:15 | Outpatient (BNVA) | payer MEDICARE, SELFPAY | PROVIDERS: PCP Registered Nurse; Visit Provider Registered Nurse | DX: E78.5 Hyperlipidemia, unspecified (principal); E11.65 Type 2 diabetes mellitus with hyperglycemia; Z79.4 Long term (current) use of insulin | CPT/HCPCS: 80053; 80061; 83036; 85025 ==

== ENCOUNTER 2022-11-25 10:36 | Outpatient (CLI) | payer MEDICARE, SELFPAY ==
--- NOTE | 2022-11-25 11:15 | USCV_ITS ---
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 Flow is noted in the profunda. Flow appears to be reconstituted in the right popliteal distally. There is blood flow to the right DPA and ENVIRONMENTAL DESIGNER. Low velocity monophasic continuous waveforms are noted in the infrapopliteal vessels There appears to be no flow in the left SFA prox-dist. Flow is noted in the profunda. Flow appears to be reconstituted in the left popliteal distally. There is blood flow to the left DPA and ENVIRONMENTAL DESIGNER. CONCLUSIONS 1. Features of total occlusion of the superficial femoral artery on the right side with reconstitution at the level of the distal popliteal artery. Patent profundofemoral artery on the right side. 2. Features of total occlusion of the superficial femoral artery on the left side with a possible reconstitution in the popliteal and infrapopliteal vessels. The stented segment of the proximal to mid SFA was found to be totally occluded. 3. Resting LUIGI of 0.4 bilaterally suggesting severe peripheral arterial disease Compared to the study from 04/13/2022, there may not be significant change Dr Tiara Kat MD [facility] (Electronically Signed) Final Date: 25 November 2022 17:32 S
== END 2022-11-25 10:37 | disposition home or self-care (01) ==
PROVIDERS: PCP Registered Nurse; Visit Provider Internal Medicine Cardiovascular Disease
DX: I73.9 Peripheral vascular disease, unspecified (principal); I77.9 Disorder of arteries and arterioles, unspecified
CPT/HCPCS: 93925

== ENCOUNTER → 2023-01-26 13:53 | Outpatient (BNVA) | payer MEDICARE, SELFPAY | PROVIDERS: PCP Registered Nurse; Visit Provider Internal Medicine Cardiovascular Disease | DX: I25.118 Atherosclerotic heart disease of native coronary artery with other forms of angina pectoris (principal); I10 Essential (primary) hypertension; E11.65 Type 2 diabetes mellitus with hyperglycemia; Z79.4 Long term (current) use of insulin; I65.29 Occlusion and stenosis of unspecified carotid artery; E78.5 Hyperlipidemia, unspecified; Z87.891 Personal history of nicotine dependence; Z79.82 Long term (current) use of aspirin | CPT/HCPCS: 99214 ==

== ENCOUNTER → 2023-06-30 10:53 | Outpatient (BNVA) | payer MEDICARE, SELFPAY | PROVIDERS: PCP Registered Nurse; Visit Provider Registered Nurse | DX: E11.65 Type 2 diabetes mellitus with hyperglycemia (principal); Z79.4 Long term (current) use of insulin | CPT/HCPCS: 80053; 83036 ==